=== PATIENT | male | born 1950 | race Caucasian/White ===

== ENCOUNTER 2021-06-09 07:34 | Emergency (ER) | payer MEDICARE, MEDICAID ==
[~2021-06-09] VITALS: Ht 177.8 cm; Wt 80.0 kg
[2021-06-09] MEDS ORDERED: SODIUM CHLORIDE 0.9% 1,000 ML IV ONE (08:00)
[2021-06-09] MEDS ORDERED: DILTIAZEM HCL 5MG/ML 5ML VIAL IV ONE (08:00)
[2021-06-09 08:54] LABS: BASOPHILS % 0.5 % (0.0-2.0); EOSINOPHILS % 1.5 % (0.0-5.0); HEMATOCRIT. 34.4 % (42.0-52.0); HEMOGLOBIN. 11.8 g/dL (14.0-18.0); LYMPHOCYTES % 35.8 % (20.0-50.0); MEAN CORPUSCULAR HEMOGLOBIN 28.2 pg (28.0-32.0); MEAN CORPUSCULAR VOLUME 82.2 fL (80.0-94.0); MEAN PLATELET VOLUME 8.1 fl (7.4-10.4); MONOCYTES % 7.4 % (2.0-8.0); NEUTROPHILS % 54.8 % (40.0-76.0); PLATELET 313 x1000/uL (130-400); RED BLOOD CELL COUNT 4.18 mill/uL (4.7-6.1)
[2021-06-09 09:00] LABS: CHLORIDE 101 mEq/L (98-107)
[2021-06-09] MEDS ORDERED: DILTIAZEM HCL 125 MG in DEXT 5% WATER 100 ML IV ONE (09:00)
[2021-06-09 09:04] LABS: ETHANOL BLOOD < 10 mg/dL
[2021-06-09 09:05] LABS: INR 1.1; PROTHROMBIN TIME 11.7 sec (9.6-11.0)
[2021-06-09 09:08] LABS: LDL CHOLESTEROL 50 mg/dL (5-100)
[2021-06-09] MEDS ORDERED: LORAZEPAM 2MG/ML CPJ IV ONE (09:30)
[2021-06-09] MEDS ORDERED: IOHEXOL-350 100 ML BOTTLE ONE (10:13)
[2021-06-09 11:03] VITALS: BP 159/85
== END 2021-06-09 11:14 | disposition short-term general hospital (02) ==
LOC: ER 07:41 → CANBEDREQ 10:59 → ER 11:14
DX: I63.9 Cerebral infarction, unspecified (principal); I48.91 Unspecified atrial fibrillation; E87.6 Hypokalemia; E11.9 Type 2 diabetes mellitus without complications
CPT/HCPCS: 36415; 70450; 70496; 70498; 71045; 80053; 80320; 82962; 83721; 84443; 84484; 85025; 85610; 93005; 96361; 96374; 96375; 96376; 99291; J2060; J3490; J7030; J7060; Q9967; G0480